=== PATIENT | female | born 1940 | race Caucasian/White ===

== ENCOUNTER → 2017-03-06 | Outpatient (CLI) | payer MEDICARE, OTHER ==
--- NOTE | 2017-03-09 04:55 | CT ---
Procedure: CT CHEST WITH IV CONTRAST Exam date: 03/06/2017 8:09 AM CDT Ordering Provider: LEIF SINGH Clinical Indication: SOLITARY PULMONARY NODULE Comparison: April 27, 2016 Technique: Using a multislice scanner, sequential axial imaging was obtained in the thorax from the level of the thoracic inlet through the lung bases. The exam was obtained with the administration of IV contrast. 2D sagittal and coronal reconstructed images were obtained. FINDINGS: There is a ill-defined hypoechoic presumably thyroid nodule measuring 2.2 x 3.2 cm extending into the superior mediastinum slightly displacing the esophagus. This is within the left thyroid lobe displacing mediastinal structures rightward. This is grossly stable from October 12, 2015. There are no pulmonary masses or nodules. There is no alveolar or interstitial infiltrate. There are no pleural effusions. Cardiac size is normal. There is no pericardial effusion. Aorta and pulmonary arteries are grossly unremarkable. Bullous timing was not sent for pulmonary angiography and segmental or subsegmental pulmonary emboli cannot be excluded. No dissection or aneurysm seen. There is no supraclavicular or axillary lymphadenopathy. There is no mediastinal, hilar, or subcarinal lymphadenopathy. There are no acute skeletal abnormalities. Thoracic spondylosis. Small hiatal hernia. IMPRESSION 1. Nonacute contrast enhanced CT scan of the chest. No suspicious pulmonary nodules or masses. 2. Thyroid goiter with dominant substernal posterior left thyroid lobe nodule. This is stable. 3. Small hiatal hernia. 4. Thoracic spondylosis. Electronically signed by: Milton Delgado MD 03/09/2017 4:54 AM CDT
== END | disposition home or self-care (01) ==
LOC: CT 08:02
PROVIDERS: ATTEND Family Medicine
DX: R91.1 Solitary pulmonary nodule (principal)

== ENCOUNTER → 2017-03-09 | Outpatient (CLI) | payer MEDICARE, OTHER | END | disposition home or self-care (01) | LOC: GMAM 14:35 | PROVIDERS: ATTEND Family Medicine | DX: E01.2 Iodine-deficiency related (endemic) goiter, unspecified (principal) ==

== ENCOUNTER → 2017-06-24 | Outpatient (CLI) | payer MEDICARE, MEDICAID | END | disposition home or self-care (01) | LOC: GMAM 14:27 | PROVIDERS: ATTEND Family Medicine | DX: R53.83 Other fatigue (principal); L65.9 Nonscarring hair loss, unspecified ==

== ENCOUNTER → 2018-09-20 | Outpatient (CLI) | payer MEDICARE, MEDICAID | LOC: GMAM 14:07 | PROVIDERS: ATTEND Family Medicine | DX: I10 Essential (primary) hypertension (principal) ==

== ENCOUNTER 2018-10-02 13:00 | Emergency (ER) | payer MEDICARE, MEDICAID ==
[2018-10-02 13:39] VITALS: TEMP 98.7
--- NOTE | 2018-10-02 13:59 | ED.PDOC ---
History of Present Illness - General Chief Complaint: Syncope/Near Syncope Stated Complaint: syncope Time Seen by Provider: 10/02/18 13:53 Source: patient Exam Limitations: no limitations - History of Present Illness Initial Comments: reji Lindsey 77 y/o female brought by EMS from [facility] patient stated she was eating then had onset of dizziness,could not move and had a hard time breathing.she was helped by one of the nurses to sit on her walker w/chair and brought to her room to rest then EMS was called up.No previous cva,or heart problems was placed in the [facility] since she lived by herself and unable to take care of most ADL/ IADL. Timing/Duration: 1-3 hours Severity: moderate Improving Factors: nothing Worsening Factors: nothing Associated Symptoms: other - see hpi Allergies/Adverse Reactions: Allergies Amoxicillin Allergy (Verified 10/02/18 13:39) Clindamycin Allergy (Verified 10/02/18 13:39) Red Dye Allergy (Verified 06/29/14 13:26) Home Medications: Ambulatory Orders Furosemide [Lasix] 30 mg PO DAILY 11/18/12 Acetaminophen [Tylenol] 1 - 2 mg PO PRN 10/02/18 Aspirin [Aspirin Adult Low Dose] 162 mg PO DAILY 365 Days #1 bottle 10/02/18 Benzonatate Perles [Tessalon Perles] 200 mg PO PRN 10/02/18 Calcium Carbonate-Cholecalcife [Calcium 600+D3 600-400 mg-Unit] 1 tab PO BID 11/19 Celecoxib [Celebrex] 200 mg PO BID 10/02/18 Clobetasol Propionate 0.05 % EX PRN 10/02/18 Escitalopram Oxalate 10 mg PO DAILY 10/02/18 Fluticasone Propionate (Nasal) [Fluticasone Propionate Na] 2 inh NA DAILY HYDROcodone 10MG/APAP 325MG [[place] 10/325] 1 tab PO Q4H PRN 10/02/18 Loratadine 10 mg PO DAILY 10/02/18 Potassium Chloride [Klor-Con] 30 meq PO TID 10/02/18 Review of Systems - Review of Systems Constitutional: States: no symptoms reported EENTM: States: no symptoms reported Respiratory: States: no symptoms reported Cardiology: States: no symptoms reported Gastrointestinal/Abdominal: States: no symptoms reported Genitourinary: States: no symptoms reported Musculoskeletal: States: no symptoms reported Skin: States: no symptoms reported Neurological: States: see HPI, other - dizziness Past Medical History (General) - Patient Medical History Hx Congestive Heart Failure: Yes Hx Hypertension: Yes Hx Diabetes: No Hx Gastroesophageal Reflux: Yes Hx Other PMH: Yes - essential tremors Surgical History: cholecystectomy, other - left hip,cataract - Vaccination History Hx Influenza Vaccination: - unknown Hx Pneumococcal Vaccination: - unknown - Social History Hx Tobacco Use: No Hx Depression: Yes Hx Physical Abuse: No Hx Emotional Abuse: No - Activities of Daily Living Care Home/Assisted Living (if applicable):: [facility] Grooming Ability: Moderate Assistance Eating (Feeding) Ability: Moderate Assistance Toileting Ability: Moderate Assistance - Female History Patient is a Female of Child Bearing Age (10 -59 yrs old): No Family Medical History - Family History Mother Family History: Unknown Living Status: Unknown Hx Family Hypertension: Yes - mom Hx Family Stroke: Yes - mom Physical Exam - Physical Exam General Appearance: Alert, Comfortable, No apparent distress, Other - speech fluent Eye Exam: bilateral normal Ears, Nose, Throat: hearing grossly normal, normal ENT inspection, other - dentures Neck: full range of motion, supple, normal inspection Respiratory: chest non-tender, lungs clear, normal breath sounds Cardiovascular/Chest: normal peripheral pulses, regular rate, rhythm, no murmur Peripheral Pulses: radial,right: 2+, radial,left: 2+ Gastrointestinal/Abdominal: non tender, soft, no organomegaly Back Exam: no CVA tenderness, no vertebral tenderness Extremity: no pedal edema, no calf tenderness Neurologic: no motor/sensory deficits, alert, oriented x 3, other - negative pronator drift Skin Exam: normal color, warm/dry Progress - Progress Progress: 10/02/18 14:02 Vital Signs - 8 hr 10/02/18 13:32 Temperature 98.7 F Pulse Rate [ 93 H Right Brachial] Respiratory 16 Rate Blood Pressure 189/69 [Right Arm] O2 Sat by Pulse 96 Oximetry 10/02/18 15:13 Di - Results/Orders Results/Orders: 10/02/18 13:30 EKG STAT 10/02/18 14:42 URINALYSIS Stat Laboratory Results - last 24 hr 10/02/18 14:47 WBC 5.1 RBC 4.26 Hgb 13.5 Hct 40.5 MCV 94.9 MCH 31.6 H MCHC 33.3 RDW 13.0 Plt Count 194 MPV 9.5 Absolute Neuts (auto) 3.00 Absolute Lymphs (auto) 1.20 Absolute Monos (auto) 0.80 Absolute Eos (auto) 0.10 Absolute Basos (auto) 0.00 Neutrophils % 60.2 Lymphocytes % 22.8 Monocytes % 15.1 H Eosinophils % 1.2 Basophils % 0.7 PT 10.3 INR 1.03 PTT (SP) 24.3 Sodium 137 Potassium 3.8 Chloride 102 Carbon Dioxide 27 Anion Gap 11.8 L BUN 13 Creatinine 0.81 BUN/Creatinine Ratio 16.0 Random Glucose 125 H Serum Osmolality 275.4 Calcium 9.5 Magnesium 1.9 Total Bilirubin 0.6 Direct Bilirubin < 0.1 Indirect Bilirubin 0.5 AST 18 ALT 15 Alkaline Phosphatase 74 Creatine Kinase 37 CK-MB (CK-2) 0.6 CK-MB (CK-2) % Not Reportable Troponin I < 0.02 Serum Total Protein 7.2 Albumin 3.9 Discuss all test result with patient including head ct;cxr no acute findings noted - EKG/XRAY/CT XRAY: chest - no acute abnormalities CT Ordered: Yes - head -no acute intracranial abnormality Departure - Departure Clinical Impression: Near syncope Time of Disposition: 15:14 Disposition: Discharge to SNF Condition: Fair Departure Forms: ED Discharge - Pt. Copy, Patient Portal Self Enrollment Instructions: DI for Syncope in Adults (Fainting) Referrals: LEIGHTON CAMERON [Primary Care Provider] - 1-2 Weeks Prescriptions: Aspirin [Aspirin Adult Low Dose] 162 mg PO DAILY 365 Days #1 bottle Home Medications: Ambulatory Orders Furosemide [Lasix] 30 mg PO DAILY 11/18/12 Acetaminophen [Tylenol] 1 - 2 mg PO PRN 10/02/18 Aspirin [Aspirin Adult Low Dose] 162 mg PO DAILY 365 Days #1 bottle 10/02/18 Benzonatate Perles [Tessalon Perles] 200 mg PO PRN 10/02/18 Calcium Carbonate-Cholecalcife [Calcium 600+D3 600-400 mg-Unit] 1 tab PO BID 11/19 Celecoxib [Celebrex] 200 mg PO BID 10/02/18 Clobetasol Propionate 0.05 % EX PRN 10/02/18 Escitalopram Oxalate 10 mg PO DAILY 10/02/18 Fluticasone Propionate (Nasal) [Fluticasone Propionate Na] 2 inh NA DAILY HYDROcodone 10MG/APAP 325MG [[place] 10] 1 tab PO Q4H PRN 10/02/18 Loratadine 10 mg PO DAILY 10/02/18 Potassium Chloride [Klor-Con] 30 meq PO TID 10/02/18 Additional Instructions: Return to emergency room as needed;Need to take Baby aspirin -2 tablets daily in am;follow up with primary Md 05 Oct 2018
--- NOTE | 2018-10-02 15:08 | RAD ---
PROCEDURE: XR CHEST 1 VIEW HISTORY: cough COMPARISON: 03/06/2017 TECHNIQUE: Single projection of the chest was done. FINDINGS: Interposition of the gas containing bowel loops is seen below the bilateral hemidiaphragms, benign variant . There are no discrete airspace infiltrates, pneumothoraces or pleural effusions. The pulmonary vascularity is normal. The cardiomediastinal silhouette is unremarkable for patient's age and sex. IMPRESSION: There is no acute pleural-parenchymal process seen in the imaged lung negron. Location of Interpretation: Teleradiology Electronically signed by: Tereso Gaytan MD 10/02/2018 3:07 PM [facility] Workstation: [id number]
--- NOTE | 2018-10-02 15:10 | CT ---
PROCEDURE: Head HISTORY: near syncope Indication: Same as above Comparison: None Technique: CT of the head was done without intravenous contrast was done in the orthogonal planes. This exam was performed according to our departmental dose-optimization program, which includes automated exposure control, adjustment of the mA and/or KV according to the patient's size and/or use of iterative reconstruction technique. FINDINGS: There is no intracranial hemorrhage, midline shift mass effect or acute focal infarct. There is prominence of the sylvian fissures and the cortical sulci reflecting age related volume loss. There is periventricular and deep white matter low attenuation, most likely related to small vessel white matter ischemic disease. If clinical concern exists regarding an acute ischemic/vascular pathology being responsible for patient's symptomatology, an MRI of the brain is more sensitive than the current study, in ruling out such a possibility. There is good zamora/white matter differentiation. The ventricular system is normal. The mastoid air cells are unremarkable . The paranasal sinuses show changes of chronic sinusitis . There is no visualization of acute fractures involving the calvarium or the skull base. IMPRESSION: There is no acute intracranial abnormality. Age related and chronic involutional changes are seen. Electronically signed by: Tereso Gaytan MD 10/02/2018 3:08 PM [facility] Workstation: [id number]
[2018-10-02] MEDS: ASPIRIN TABLET 325 MG TAB PO ONE (16:50)
[2018-10-02 17:28] VITALS: BP 161/72; O2SAT 98
== END 2018-10-02 17:29 ==
LOC: ER 13:00
DX: R55 Syncope and collapse (principal); R42 Dizziness and giddiness; I50.9 Heart failure, unspecified; I11.0 Hypertensive heart disease with heart failure; K21.9 Gastro-esophageal reflux disease without esophagitis; F32.9 Major depressive disorder, single episode, unspecified; Z79.899 Other long term (current) drug therapy; Z88.1 Allergy status to other antibiotic agents

== ENCOUNTER 2019-08-15 11:43 | Emergency (ER) | payer MEDICARE, MEDICAID ==
[2019-08-15 12:21] VITALS: TEMP 97.6; O2SAT 97
[2019-08-15] MEDS ORDERED: SODIUM CHLORIDE 0.9% 1000ML 500 ML IVS ONE (12:43)
--- NOTE | 2019-08-15 12:48 | ED.PDOC ---
History of Present Illness - General Chief Complaint: GI Problem Stated Complaint: N/V/D FEVER TODAY Time Seen by Provider: 08/15/19 12:42 Exam Limitations: other - Dementia Additional Information: Ita Mcclain is a 78-year-old female who presents from the alf with chief complaint of vomiting, diarrhea, and fever. Per alf, patient complained of one episode of vomiting and diarrhea and they took her temperature and it was 103, and they transferred patient themselves to the ED. Patient complains of mild upper abdominal pain and confirms vomiting and diarrhea but is unable to provide any further meaningful history due to her dementia. Patient specifically denies chest pain or shortness of breath. Review of Systems - Review of Systems Constitutional: States: fever Respiratory: Denies: cough, short of breath Cardiology: Denies: chest pain Genitourinary: States: see HPI Musculoskeletal: States: no symptoms reported Skin: States: no symptoms reported Neurological: Denies: headache All other Systems: Reviewed and Negative Past Medical History (General) - Patient Medical History Hx Congestive Heart Failure: Yes Hx Hypertension: Yes Hx Diabetes: No Hx Gastroesophageal Reflux: Yes - Vaccination History Hx Influenza Vaccination: - unknown Hx Pneumococcal Vaccination: - unknown Immunizations Comment: UNKNOWN - Social History Hx Tobacco Use: No Hx Depression: Yes Hx Physical Abuse: No Hx Emotional Abuse: No - Activities of Daily Living [facility]Assisted Living (if applicable):: [facility] - Female History Patient is a Female of Child Bearing Age (10 -59 yrs old): No Family Medical History - Family History Mother Family History: Unknown Living Status: Unknown Hx Family Hypertension: Yes - mom Hx Family Stroke: Yes - mom Physical Exam - Physical Exam General Appearance: No apparent distress - obese, resting comfortably in bed Eyes, Ears, Nose, Throat Exam: PERRL/EOMI, normal ENT inspection Neck: non-tender, full range of motion, supple, normal inspection Respiratory: chest non-tender, lungs clear, normal breath sounds, no respiratory distress, no accessory muscle use Cardiovascular/Chest: normal peripheral pulses, regular rate, rhythm, no edema Gastrointestinal/Abdominal: normal bowel sounds, soft, no organomegaly, tenderness - mild, upper abdomen, negative guarding Extremity: non-tender Neurologic: casting finisher II-XII nml as tested, no motor/sensory deficits, alert, other - patient is oriented to person and place but not to time Skin Exam: normal color, warm/dry Progress - Progress Progress: 08/15/19 12:51 differential diagnosis includes but is not limited to sepsis, UTI, gastroenteritis, electrolyte disorder 08/15/19 16:02 The patient is feeling better at this time, she has had no episodes of vomiting or diarrhea in the ED. She indicates that her pain is much improved and well controlled. Patient's labs are unremarkable and her CT shows findings consistent with gastroenteritis. There is no evidence of bowel obstruction or colitis. Patient has been given IV fluids and antiemetics and her vital signs are stable and normal. I believe the patient is safe for discharge with symptomatic treatment at the alf. There is no indication for antibiotics presently. Departure - Departure Clinical Impression: Volume depletion, gastrointestinal loss, Abdominal pain, vomiting, and diarrhea, Enteritis Time of Disposition: 16:05 Disposition: Discharge to Home or Self Care Condition: Fair Departure Forms: ED Discharge - Pt. Copy, Patient Portal Self Enrollment Instructions: DI for Gastritis, DI for Abdominal Pain-Adult Diet: bland diet Referrals: LEIGHTON CAMERON [Primary Care Provider] - 1-5 Days Prescriptions: Loperamide HCl [Imodium A-D] 2 mg PO TID PRN #10 tab PRN Reason: Diarrhea Promethazine Tab [Phenergan Tablet] 25 mg PO Q6H PRN #6 tab PRN Reason: Vomiting Home Medications: Ambulatory Orders Furosemide [Lasix] 30 mg PO DAILY 11/18/12 Acetaminophen [Tylenol] 1 - 2 mg PO PRN 10/02/18 Aspirin [Aspirin Adult Low Dose] 162 mg PO DAILY 365 Days #1 bottle 10/02/18 Benzonatate Perles [Tessalon Perles] 200 mg PO PRN 10/02/18 Calcium Carbonate-Cholecalcife [Calcium 600+D3 600-400 mg-Unit] 1 tab PO BID 10/02/18 Celecoxib [Celebrex] 200 mg PO BID 10/02/18 Clobetasol Propionate 0.05 % EX PRN 10/02/18 Escitalopram Oxalate 10 mg PO DAILY 10/02/18 Fluticasone Propionate (Nasal) [Fluticasone Propionate Na] 2 inh NA DAILY 10/02/18 HYDROcodone 10MG/APAP 325MG [[place] 10/325] 1 tab PO Q4H PRN 10/02/18 Loratadine 10 mg PO DAILY 10/02/18 Potassium Chloride [Klor-Con] 30 meq PO TID 10/02/18 Loperamide HCl [Imodium A-D] 2 mg PO TID PRN #10 tab 08/15/19 Promethazine Tab [Phenergan Tablet] 25 mg PO Q6H PRN #6 tab 08/15/19
--- NOTE | 2019-08-15 15:05 | CT ---
EXAM DESCRIPTION: Abdomen/Pelvis w/Contrast CLINICAL HISTORY: 78 years Female, abdominal pain TECHNIQUE: This exam was performed according to our departmental dose-optimization program, which includes automated exposure control, adjustment of the mA and/or kV according to patient size and/or use of iterative reconstruction technique. COMPARISON: None at time of initial interpretation. FINDINGS: Bibasilar volume loss. No focal consolidation or suspicious pulmonary nodule. Hepatic steatosis. No suspicious hepatic lesion. No biliary dilatation. Cholecystectomy. The portal vein is patent. The spleen, pancreas and adrenal glands are unremarkable. Symmetric renal parenchymal enhancement. No hydronephrosis. No urolithiasis. Unremarkable bladder. Fibroid uterus. No adnexal mass. Small hiatal hernia. Scattered colonic diverticula. There are multifocal segments of small and large bowel which demonstrate mural edema and mesenteric vascular congestion. The bowel is not dilated. No pneumatosis or portal venous gas. No adenopathy. No focal fluid collection. No free air. Normal caliber abdominal aorta. Mild atherosclerotic disease. No acute or suspicious osseous abnormality. Scattered degenerative changes present. Three screws associated with the proximal left femur. IMPRESSION: Findings most compatible acute uncomplicated multifocal enterocolitis. Electronically signed by: Edison Somers MD 08/15/2019 3:04 PM CDT
[2019-08-15 16:52] VITALS: BP 156/63
== END 2019-08-15 16:52 | disposition home or self-care (01) ==
LOC: ER 11:43
DX: K52.9 Noninfective gastroenteritis and colitis, unspecified (principal); E86.9 Volume depletion, unspecified; E66.9 Obesity, unspecified; F32.9 Major depressive disorder, single episode, unspecified; K21.9 Gastro-esophageal reflux disease without esophagitis; I11.0 Hypertensive heart disease with heart failure; I50.9 Heart failure, unspecified; Z68.33 Body mass index [BMI] 33.0-33.9, adult
CPT/HCPCS: 36415; 74177; 80053; 83605; 83690; 85025; 93005; J7030

== ENCOUNTER → 2020-11-19 | Outpatient (CLI) | payer MEDICARE, MEDICAID ==
--- NOTE | 2020-11-20 11:11 | MRI ---
EXAM DESCRIPTION: Brain w/o Contrast: MRI. CLINICAL HISTORY: MUSCLE WEAKNESS COMPARISON: MRI scan of the brain without and with gadolinium IV contrast August 2014. TECHNIQUE: Multiplanar, high-field MRI unit, multiple diffusion sequences, multiple conventional sequences without contrast. FINDINGS: Hyperintense confluent FLAIR and T2-weighted signal in the periventricular white matter at the level of the upper ventricles and also bilateral frontal horns and occipital horns. Bilateral involvement of the centrum semiovale in the supraventricular brain white matter extending to the vertex. Multifocal hyperintense T2 and FLAIR signal in the subcortical white matter of all cerebral lobes. No hemorrhage, no cerebral edema, no midline shift.. Normal signal in the bilateral basal ganglia. Normal signal in the brainstem and cerebellar hemispheres. Concordance of the diffusion and non-diffusion sequences with no diffusion restriction. Cortical sulci, ventricles, and other CSF spaces, and the subdural spaces are normally configured for patient's age. No effacement or displacement. No midline shift. No extra-axial hemorrhage. Normal flow signal void in the major vessels of the [place], and the venous sinuses. IACs are symmetric bilaterally. Normal signal in the bilateral mastoid air cells. No mass effect in the bilateral cerebellopontine angles. Pituitary gland occupies only the base of the sella. Base of the cerebellar tonsils is above the foramen magnum. Paranasal sinuses are unremarkable.. The bony calvarium is intact. IMPRESSION: 1. No acute brain abnormality such as hemorrhage or infarction. No mass effect, no midline shift, no cerebral edema. No abnormal fluid collection. 2. Periventricular white matter and subcortical white matter signal abnormalities most likely related to cerebral microvascular disease, and/or aging. Similar findings on the prior study. 3. Normal noncontrast MRI diffusion study with no evidence of acute or subacute infarction. Electronically signed by: Doug Morocho MD 11/20/2020 11:10 AM [facility]
== END ==
LOC: MRI 10:38
PROVIDERS: ATTEND Family Medicine
DX: M62.81 Muscle weakness (generalized) (principal); R90.82 White matter disease, unspecified

== ENCOUNTER → 2021-01-01 | Outpatient (CLI) | payer MEDICARE, MEDICAID ==
--- NOTE | 2021-01-01 19:39 | US ---
EXAM DESCRIPTION: Carotid Duplex: ULTRASOUND. CLINICAL HISTORY: 80 years Female OCCLUSION AND STENOSIS OF CEREBELLAR ARTERIES COMPARISON: MRI brain November 19. TECHNIQUE: Transcutaneous scanning utilizing zamora-scale and Doppler modes to evaluate the bilateral carotid systems and vertebral arteries. Percentage of diameter of stenosis or no stenosis recorded will be based upon NASCET criteria. FINDINGS: Peak systolic/end diastolic velocities (CM-Sec) CCA Right 65/7 Left 112/14. ICA Right proximal 67/10, distal 81/17. Left proximal 67/15, mid 75/20. Vertebral Right 58/8 Left 32/6. ECA (PS Only) Right 61 left 35. ICA/CCA peak systolic velocity ratio: Right 1.2 Left 0.7 ICA/CCA end diastolic velocity ratio: Right 2.6 Left 1.5 Vertebral arteries: antegrade flow. Comments Comments: Bilateral atherosclerotic calcification in the carotid bifurcations and the proximal ICAs. Minimal spectral broadening in the proximal ICA. Area and diameter stenosis on the right is less than 30%. No spectral broadening on the left ICA. Area and diameter stenosis on the left is 35% or less. IMPRESSION: 1. Doppler evaluation of the bilateral carotid systems and vertebral arteries shows no hemodynamically significant stenoses (less than 70%). 2. Moderate amount of plaque in the carotid arteries bilaterally. Bilateral vertebral arteries showed antegrade-cephalad flow. Electronically signed by: Doug Morocho MD 01/01/2021 7:38 PM [facility]
== END ==
LOC: ECHO 09:27
PROVIDERS: ATTEND Psychiatry & Neurology Neurology
DX: I66.3 Occlusion and stenosis of cerebellar arteries (principal); I65.23 Occlusion and stenosis of bilateral carotid arteries; G60.3 Idiopathic progressive neuropathy; I34.0 Nonrheumatic mitral (valve) insufficiency; I36.1 Nonrheumatic tricuspid (valve) insufficiency; I31.3 Pericardial effusion (noninflammatory)